=== PATIENT | male | born 1950 | race Caucasian/White ===

== ENCOUNTER → 2024-05-02 08:03 | Outpatient (REF) | payer OTHER, SELFPAY | LOC: HWRCS 08:03 | PROVIDERS: ATTENDING PHYSICIAN Internal Medicine; FAMILY PHYSICIAN Family Medicine | DX: I77.810 Thoracic aortic ectasia (principal) | CPT/HCPCS: 93306 ==

== ENCOUNTER → 2024-05-20 08:44 | Outpatient (REF) | payer OTHER, SELFPAY | LOC: HWRAD 08:44 | PROVIDERS: ATTENDING PHYSICIAN Surgery; FAMILY PHYSICIAN Family Medicine | DX: N40.0 Benign prostatic hyperplasia without lower urinary tract symptoms (principal) | CPT/HCPCS: 76770 ==

== ENCOUNTER 2024-11-23 10:24 | Emergency (ER) | payer OTHER, SELFPAY ==
[2024-11-23] VITALS (16 sets, daily range): BP systolic 95–133; BP diastolic 69–89; BMI 29.2
--- NOTE | 2024-11-23 10:32 | ED.GENMED ---
History of Present Illness
<KARLEY Chamberlain - Last Filed: 11/23/24 14:21>
General
Chief Complaint: Chest Pain
Source: patient
Exam Limitations: none
Time Seen by Provider: 11/23/24 10:32
Nursing documentation reviewed up to this point in time: agreed with
History of Present Illness
History of Present Illness:
74 yr old male with past medical history of hypertension renal failure renal transplant 4 years ago A-fib(last episode 2-3 years ago) presents to the ER for evaluation. Patient was making coffee prior to arrival and felt he went into A-fib. He did
take his normal Eliquis this morning. He also was prescribed metoprolol as needed for possible A-fib and he did take a dose today. He is followed by cardiology here Dr. Dc.
He had no associated chest pain/shortness of breath.
Patient has had episodes of A-fib in the past and has spontaneously converted on his own. In addition he has had cardioversions which have not worked.
Past History
<KARLEY Chamberlain - Last Filed: 11/23/24 14:21>
Past History
ED Past Medical History: HTN and Other (Chronic kidney disease)
Social History
Tobacco: Non-smoker
Alcohol: None
Review of Systems
<KARLEY Chamberlain - Last Filed: 11/23/24 14:21>
Review of Systems
Allergies reviewed?: Yes
All Other Systems: ROS reviewed and negative except as documented in HPI and ROS
Constitutional: Reports no symptoms; Denies fever, fatigue or chills
Phy Exam
<KARLEY Chamberlain - Last Filed: 11/23/24 14:21>
General Physical Exam
General Presentation: no apparent distress
General age: appears stated age
General Skin: warm and dry
General Habitus: normal
General Mental: alert
General Hydration: appears well hydrated
Cardiovascular Exam
Cardiovascular Exam: irregularly irregular
Pulmonary Exam
Pulmonary Exam: lungs clear and no respiratory distress
Neurological Exam
Neurological Exam: alert and oriented x3
Musculoskeletal Exam
Musculoskeletal Exam: full ROM
Skin Exam
Skin Exam: normal color and warm/dry
Psychiatric Exam
Psychiatric Exam: normal mood/affect
Scores
<KARLEY Chamberlain - Last Filed: 11/23/24 14:21>
Heart Score for Chest Pain Patients
STEMI patient?: Not applicable
Course
<KARLEY Chamberlain - Last Filed: 11/23/24 14:21>
Orders/Labs/Results
Orders:
Orders
11/23/24 10:24
ECG [Electrocardiogram (*1)] Urgent
Reason for Study: Chest Pain
11/23/24 10:25
EKG- Treatment ONCE
11/23/24 10:42
Cardiac Monitoring- Treatment ONCE
IV Insert/Care/Rem.- Treatment PRN
11/23/24 10:46
Diltiazem 125 mg/125 ml Nss [Cardizem] 125 mg in 125 ml IV NOW
Initial dose in mg/hr, then titrate:: 5
Titrate to keep:: Heart rate 80-100 bpm
Titrate by mg/hr:: 5 mg/hr
Frequency of titrations (minutes):: 15
Maximum dose in mg/hr:: 15
Diltiazem HCl [Cardizem] 10 mg IV NOW STA
11/23/24 10:59
Complete Blood Count/With Diff Urgent
Comprehensive Metabolic Panel Urgent
TSH Reflex To Free T4 Urgent
11/23/24 11:00
0.9% Sodium Chloride 1000 ml [Nss] 1,000 ml IV BOLUS
Abnormal Lab Results
11/23/24
10:59
MPV 11.5 H fL
(7.4-10.4)
Absolute Lymphs (auto) 0.7 L 10^3/uL
(1.2-3.4)
Neutrophils % 81.1 H %
(42.2-75.2)
Lymphocytes % 9.7 L %
(20.5-51.1)
Sodium 134 L mmol/L
(135-145)
Carbon Dioxide 18 L mmol/L
(22-30)
BUN 35 H mg/dl
(9-20)
Glucose 393 H mg/dl
(70-99)
11/23/24 10:59
11/23/24 10:59
Vital Signs
Initial and Last Documented VS:
Initial Vital Signs
Temp Pulse Resp BP Pulse Ox
98.5 F 70 18 119/85 98
11/23/24 10:27 11/23/24 10:27 11/23/24 10:27 11/23/24 10:27 11/23/24 10:27
Last Documented Vital Signs
Temp Pulse Resp BP Pulse Ox
98.5 F 81 18 116/69 98
11/23/24 10:27 11/23/24 12:13 11/23/24 12:13 11/23/24 12:13 11/23/24 12:13
Weatherization Installer consulted with Physician
Weatherization Installer consulted with physician?: Yes
Name of Physician Consulted: Zaida
<Eliezer Cerda, DO - Last Filed: 11/23/24 10:46>
Orders/Labs/Results
Orders:
Orders
11/23/24 10:24
ECG [Electrocardiogram (*1)] Urgent
Reason for Study: Chest Pain
11/23/24 10:25
EKG- Treatment ONCE
11/23/24 10:42
Cardiac Monitoring- Treatment ONCE
IV Insert/Care/Rem.- Treatment PRN
11/23/24 10:46
Diltiazem 125 mg/125 ml Nss [Cardizem] 125 mg in 125 ml IV NOW
Initial dose in mg/hr, then titrate:: 5
Titrate to keep:: Heart rate 80-100 bpm
Titrate by mg/hr:: 5 mg/hr
Frequency of titrations (minutes):: 15
Maximum dose in mg/hr:: 15
Diltiazem HCl [Cardizem] 10 mg IV NOW STA
11/23/24 10:59
Complete Blood Count/With Diff Urgent
Comprehensive Metabolic Panel Urgent
TSH Reflex To Free T4 Urgent
11/23/24 11:00
0.9% Sodium Chloride 1000 ml [Nss] 1,000 ml IV BOLUS
Abnormal Lab Results
11/23/24
10:59
MPV 11.5 H fL
(7.4-10.4)
Absolute Lymphs (auto) 0.7 L 10^3/uL
(1.2-3.4)
Neutrophils % 81.1 H %
(42.2-75.2)
Lymphocytes % 9.7 L %
(20.5-51.1)
Sodium 134 L mmol/L
(135-145)
Carbon Dioxide 18 L mmol/L
(22-30)
BUN 35 H mg/dl
(9-20)
Glucose 393 H mg/dl
(70-99)
11/23/24 10:59
11/23/24 10:59
Vital Signs
Initial and Last Documented VS:
Initial Vital Signs
Temp Pulse Resp BP Pulse Ox
98.5 F 70 18 119/85 98
11/23/24 10:27 11/23/24 10:27 11/23/24 10:27 11/23/24 10:27 11/23/24 10:27
Last Documented Vital Signs
Temp Pulse Resp BP Pulse Ox
98.5 F 81 18 116/69 98
11/23/24 10:27 11/23/24 12:13 11/23/24 12:13 11/23/24 12:13 11/23/24 12:13
<KARLEY Chamberlain - Last Filed: 11/23/24 14:21>
MDM/Problems Addressed
Differential Diagnosis Includes:
Not limited to A-fib
MDM/Problems Addressed:
74-year-old male with past medical history of paroxysmal A-fib last episode 2-3 years ago on chronic Eliquis presents to the ER for A-fib. He felt symptoms abated and presented tachycardic in A-fib however stable no acute distress. Patient has had
several cardioversions in the past which were unsuccessful. Patient was given fluids Cardizem bolus and Cardizem drip he remains in A-fib however was feeling better asymptomatic and his heart rate was controlled under 100. Patient has a
prescription for metoprolol tartrate 25 mg to take only as needed when symptoms occur. He did try this today.
Pt was eval by ED physician. I spoke with cardiology on-call Dr. Gill who does recommend that patient take metoprolol tartrate 25 mg twice daily will continue on Eliquis and he will follow-up with cardiology next week. I will send a prescription
for this metoprolol dose.
Pt labs reviewed, Blood sugar elevated given fluids here patient is not acidotic normal creatinine afebrile with a normal white count stable hemoglobin and platelets.
Patient was monitored here on was Cardizem remains in a controlled A-fib asymptomatic well-appearing stable for discharge home.
<KARLEY Chamberlain - Last Filed: 11/23/24 14:21>
*Pulse Oximetry
Patient hypoxic: no
*EKG
Interpreted by ED Provider?: Yes
Heart Rate: 130
Rate: tachycardiac
Rhythm: a-fib
Ischemia: no ischemia
*Critical Care Note
Total Time (30-74mins, 75-104mins- exclusive of procedures): Not Applicable
<KARLEY Chamberlain - Last Filed: 11/23/24 14:21>
Patient Management
Discussion with other providers: Metal Casket Assembler (cardiology DR Gill )
ED Attending Note
<KARLEY Chamberlain - Last Filed: 11/23/24 14:21>
-
Portions of this chart may have been created with voice recognition software.� Occasional wrong word or��sound alike� substitutions may have occurred due to the inherent limitations of voice recognition software.
<Eliezer Cerda DO - Last Filed: 11/23/24 10:46>
ED Attending Note
Patient seen and examined by attending physician: Yes
I performed the substantive portion of visit, reviewed & personally made and approve the management plan that is documented in note by myself or DAQUAN.: Yes
ED Attending Note:
I evaluated the patient at bedside. The patient is found to be in rapid A-fib. He states he had a failed electrical cardioversion around the time he had his kidney transplant. He is compliant with Eliquis and has not missed any doses in the last
several weeks. He states he has converted spontaneously to a sinus rhythm in the emergency department at [place] twice in the past. Will try Cardizem here and reassess.
Discharge Plan
Departure
Patient Disposition: Home (Routine Discharge)
Date of Disposition: 11/23/24
Time of Disposition: 14:13
Patient with high blood pressure during this ER visit?: No
Condition: Fair
Covid-19: Not Applicable
Discharge Problem:
Atrial fibrillation, rapid
Instructions: Atrial fibrillation - Discharge instructions
Prescriptions:
New
metoprolol tartrate 25 mg tablet
25 mg PO BID Qty: 60 0RF
No Action
cyanocobalamin (vitamin B-12) 1,000 MCG tablet
1,000 mcg PO DAILY
loratadine 10 MG tablet
10 mg PO DAILY
metoprolol tartrate 25 MG tablet
25 mg PO PRN PRN (Reason: palpitations)
fluoxetine 20 MG capsule
20 mg PO DAILY
mycophenolate mofetil [CellCept] 250 mg Capsule
500 mg PO BID
amlodipine 2.5 mg Tablet
2.5 mg PO DAILY
pravastatin 20 mg Tablet
20 mg PO HS
lisinopril 2.5 mg Tablet
2.5 mg PO DAILY
tacrolimus [Prograf] 1 mg Capsule
2 mg PO DAILY
tacrolimus [Prograf] 1 mg Capsule
1.5 mg PO .EVENING
repaglinide [Prandin] 1 mg Tablet
2 mg PO BID
Rx Instructions:
breakfast and lunch
repaglinide [Prandin] 1 mg Tablet
3 mg PO .DINNER
Eliquis 5 mg Tablet
5 mg PO BID
dapagliflozin propanediol [Farxiga] 10 mg Tablet
10 mg PO DAILY
Ozempic 0.25 mg or 0.5 mg(2 mg/1.5 mL) Pen Injector
0.5 mg SC QWEEK
Rx Instructions:
monday
magnesium oxide 400 mg magnesium Tablet
800 mg PO BID
Referrals:
Nikhil Gill MD [Active] -
Devin Disla MD [Family Provider] -
Activity Restrictions/Additional Instructions:
As discussed a prescription for metoprolol tartrate 25 mg was sent to your pharmacy :take twice a day.
Avoid caffeine, chocolate etc. Stay well-hydrated. Call cardiology Monday for an appointment in the next week .
return if any worsening of symptoms
Interventions
Interventions:
*Risk Screen - Suicide Last Done: 11/23/24 10:27
*General Assessment Last Done: 11/23/24 10:27
*Neglect/Abuse Screening Last Done: 11/23/24 10:27
*ED- Fall Risk Assessment Last Done: 11/23/24 10:27
*ED COVID-19 Vaccine History Last Done: 11/23/24 10:27
ED- Cardiac Assessment Last Done: 11/23/24 10:37
Discharge Date and Time
Print Language: PASHTO
[2024-11-23 11:07] LABS: % Basophils 0.6 % (0-2); % Eosinophils 1.7 % (0-6); % Immature Granulocytes 0.3 % (0-0.5); % Lymphocytes 9.7 % (20.5-51.1); % Monocytes 6.6 % (1.7-9.3); % Neutrophils 81.1 % (42.2-75.2); Absolute Eosinophils 0.1 10^3/uL (0-0.7); Absolute Lymphocytes 0.7 10^3/uL (1.2-3.4); Absolute Monocytes 0.5 10^3/uL (0.1-0.6); Absolute Neutrophils 5.8 10^3/uL (1.4-6.5); Hematocrit 48.5 % (39.0-52.0); Hemoglobin 16.7 g/dL (13.0-18.0); Mean Corp Hgb Conc. 34.4 g/dL (33.0-37.0); Mean Corpuscular Hgb 30.8 pg (27.0-31.0); Mean Corpuscular Volume 89.3 fL (80.0-94.0); Mean Platelet Volume 11.5 fL (7.4-10.4); Nucleated Red Blood Cells % 0 % (-); Platelet Count 179 10^3/uL (130-400); Red Blood Cell Count 5.43 10^6/uL (4.70-6.10); Red Cell Dist. Width 13.2 % (11.5-14.5); White Blood Cell Count 7.1 10^3/uL (4.8-10.8)
[2024-11-23] MEDS: CARDIZEM 10 MG IV (11:08)
[2024-11-23] MEDS: CARDIZEM 125 IV (11:09)
[2024-11-23] MEDS: NSS 1000 IV (11:09)
--- NOTE | 2024-11-23 11:11 | EDRN ---
Patient stated that he developed palpitations about 1000 this morning. Stated that he was having chest pain and dizziness when it started but have gone away. Patent stated that he is beginning to feel better and does not feel like his heart is
racing as much as it was. Patient medicated with Cardizem 10mg IV and then drip started at 5mg/HR.
[2024-11-23 11:21] LABS: ALT (SGPT) 30 U/L (0-50); AST (SGOT) 20 U/L (17-59); Albumin 3.8 g/dl (3.5-5.0); Alkaline Phosphatase 63 U/L (38-126); Blood Urea Nitrogen 35 mg/dl (9-20); Calcium 9.6 mg/dl (8.4-10.2); Carbon Dioxide 18 mmol/L (22-30); Chloride 106 mmol/L (98-107); Estimated Creatinine Clearance 54 ml/min; Glucose 393 mg/dl (70-99); Potassium 4.7 mmol/L (3.5-5.1); Sodium 134 mmol/L (135-145); Total Bilirubin 0.9 mg/dl (0.2-1.3); Total Protein 6.3 g/dl (6.3-8.2); eGFR > 60.00
[2024-11-23 11:53] LABS: TSH Reflex To Free T4 4.53 uIU/ml (0.47-4.68)
--- NOTE | 2024-11-23 14:26 | EDRN ---
Reviewed discharge instructions with patient. Verbalized understanding.
== END 2024-11-23 14:28 | disposition home or self-care (01) ==
LOC: EMR 10:24
PROVIDERS: Nurse Practitioner; EMERGENCY PHYSICIAN Emergency Medicine; FAMILY PHYSICIAN Family Medicine
DX: I48.0 Paroxysmal atrial fibrillation (principal); I12.9 Hypertensive chronic kidney disease with stage 1 through stage 4 chronic kidney disease, or unspecified chronic kidney disease; E11.22 Type 2 diabetes mellitus with diabetic chronic kidney disease; N18.9 Chronic kidney disease, unspecified; E78.5 Hyperlipidemia, unspecified; F41.9 Anxiety disorder, unspecified; Z94.0 Kidney transplant status; Z79.01 Long term (current) use of anticoagulants; Z79.84 Long term (current) use of oral hypoglycemic drugs; Z88.2 Allergy status to sulfonamides; Z88.8 Allergy status to other drugs, medicaments and biological substances; Z91.041 Radiographic dye allergy status
CPT/HCPCS: 99284; 96365; 96366; 96361; 80053; 84443; 85025; 93005

== ENCOUNTER → 2024-12-20 13:41 | Outpatient (REF) | payer OTHER, SELFPAY | LOC: HWRCS 13:41 | PROVIDERS: ATTENDING PHYSICIAN Nurse Practitioner Gerontology; FAMILY PHYSICIAN Family Medicine | DX: R07.9 Chest pain, unspecified (principal) | CPT/HCPCS: 93306 ==

== ENCOUNTER 2025-02-11 11:45 | Day surgery (SDC) | payer OTHER, SELFPAY ==
[2025-02-07 12:43] VITALS: BMI 28.9
[2025-02-07 13:05] LABS: % Basophils 0.6 % (0-2); % Eosinophils 1.6 % (0-6); % Immature Granulocytes 0.2 % (0-0.5); % Lymphocytes 11.7 % (20.5-51.1); % Monocytes 8.5 % (1.7-9.3); % Neutrophils 77.4 % (42.2-75.2); Absolute Basophils 0.1 10^3/uL (0-0.2); Absolute Eosinophils 0.1 10^3/uL (0-0.7); Absolute Lymphocytes 0.9 10^3/uL (1.2-3.4); Absolute Monocytes 0.7 10^3/uL (0.1-0.6); Absolute Neutrophils 6.2 10^3/uL (1.4-6.5); Hemoglobin 16.1 g/dL (13.0-18.0); Mean Corpuscular Hgb 31.3 pg (27.0-31.0); Mean Corpuscular Volume 89.5 fL (80.0-94.0); Nucleated Red Blood Cells % 0 % (-); Platelet Count 203 10^3/uL (130-400); Red Blood Cell Count 5.14 10^6/uL (4.70-6.10); Red Cell Dist. Width 13.1 % (11.5-14.5)
[2025-02-07 13:55] LABS: ALT (SGPT) 31 U/L (0-50); AST (SGOT) 22 U/L (17-59); Albumin 4.1 g/dl (3.5-5.0); Alkaline Phosphatase 50 U/L (38-126); Blood Urea Nitrogen 33 mg/dl (9-20); Calcium 9.8 mg/dl (8.4-10.2); Carbon Dioxide 19 mmol/L (22-30); Chloride 111 mmol/L (98-107); Estimated Creatinine Clearance 48 ml/min; Glucose 180 mg/dl (70-99); Potassium 5.1 mmol/L (3.5-5.1); Sodium 137 mmol/L (135-145); Total Bilirubin 0.8 mg/dl (0.2-1.3); Total Protein 6.4 g/dl (6.3-8.2); eGFR > 60.00
[2025-02-11] VITALS (13 sets, daily range): BP systolic 89–125; BP diastolic 55–78
[2025-02-11 12:44] LABS: Glucose - Point of Care 177 mg/dl (70-99)
[2025-02-11] MEDS: NSS 500 IV (13:04)
[2025-02-11 15:57] LABS: Glucose - Point of Care 103 mg/dl (70-99)
[2025-02-11 16:31] LABS: ACT-LR - POC 382 Seconds (116-155)
[2025-02-11 16:56] LABS: ACT-LR - POC 337 Seconds (116-155)
[2025-02-11 17:04] LABS: Glucose - Point of Care 120 mg/dl (70-99)
--- NOTE | 2025-02-11 17:14 | ITS.CL.ABL ---
Loan Analyst - Ablation
Ablation
Procedure Report:
AFIB / A flutter ablation:
Mr. Cox is a very pleasant 74 yr old gentleman with medical history significant for symptomatic paroxysmal atrial fibrillation is here in the EP lab for atrial fibrillation ablation
Date of Procedure:
02/11/2025
Indications:
Symptomatic paroxysmal atrial fibrillation
Pre-Operative Diagnosis:
Paroxysmal atrial fibrillation
Post-Operative Diagnosis:
Paroxysmal atrial fibrillation
Procedure Performed:
Atrial fibrillation ablation with wide area circumferential ablation (WACA) approach for pulmonary vein isolation
Performing Physician:
Deepak Sanchez MD
Assistants:
EP staff
Anesthesia:
See anesthesia records
Detailed Description of the Procedure:
Written informed consent was obtained from the patient after a full explanation of the risks and benefits of the procedure including the risks of sedation and anesthesia.
The patient was brought to the electrophysiology laboratory in stable condition in fasting state. Continuous electrocardiographic and hemodynamic monitoring was initiated.
The initial rhythm was sinus rhythm.
The procedure site was meticulously prepared with surgical scrub and allowed to dry with no pooling. Sterile draping was applied to cover the procedure site. The image intensifier was draped with sterile bag and positioned over the patient. After
infusion of local anesthetic, vascular access was obtained under ultrasound guidance and sheaths were placed over guide wire as detailed below.
The images of the ultrasound of the femoral vessels were stored in patient chart.
Sheath and Catheter Placement:
In the right femoral vein, a 10-Serbian sheath was placed under ultrasound guidance for use during the ablation procedure. In the right femoral vein, another 9-Fr sheath was placed for use during intracardiac echo procedure.
The sheaths were upgraded as needed during the case. Intracardiac catheters were positioned using direct fluoroscopic guidance.� ICE catheter was placed in RA. The following catheters / sheaths were placed
Sheaths:
��������� Agilis sheath in right femoral vein upgraded from 10Fr in right femoral vein
��������� 9Fr in right femoral vein
Catheters:
��������� The Affera Sphere 9 catheter -bidirectional D/F� - at locations of HRA, LA and LV.
��������� ICE catheter -AccuNav -� at locations of RA, SVC, and RV.
Heparin was initiated after the access was obtained.
Intracardiac ECHO:
An 8-Serbian AcuNav intracardiac ECHO (ICE) probe was advanced through the 9-Serbian sheath in the left femoral vein into the right atrium under fluoroscopic and ICE ultrasound image guidance and a baseline ECHO study was performed. The left atrial
size was mildly dilated. There was trace tricuspid regurgitation. The aortic valve was grossly normal. There was normal left ventricular size and function. There is a trace pericardial effusion. The SHIKHA has baseline normal velocities. The pulmonary
had good flow identified.
During the procedure, ICE was used for monitoring of complications, guidance of trans-septal puncture, monitor the catheter position and tracking ablation lesions. No change in the pericardial space noted throughout the procedure.
Trans-septal Puncture:
Heparin was initiated and infused to maintain appropriate ACT. A J-tipped guidewire was advanced through into the superior vena cava under fluoroscopic and ICE guidance. The Agilis sheath with BRK needle was advanced into the superior vena cava over
the guidewire. The apparatus was withdrawn until it was in contact with the fossa ovalis. The position was adjusted based on fluoroscopy and ultrasound images from ICE. Under fluoroscopic, hemodynamic and ICE ultrasound guidance, left atrium was
cannulated by advancing the needle. Once atrial septum was cannulated, the needle was pulled back and the guide wire was advanced through the needle into the left atrium. The guide wire was advanced into the left superior pulmonary vein. Both the
sheath and the dilator was advanced into the left atrium. The dilator with the needle was withdrawn. Blood was aspirated from the Agilis sheath and arterial blood confirmed. The sheath was flushed. Saline injection noted into the left atrium on ICE.
The waveform of the LA pressure was recorded. The mapping catheter was advanced in the Agilis sheath into the left pulmonary vein.
3D Electroanatomic Mapping:
Using the Sphere 9 Affera catheter advanced through Agilis sheath into the left atrium, an electroanatomic map (EAM) of the left atrium was created using Affera� mapping system with Prism-1 software. The map was used for localization of catheter
position and tacking of ablation lesions. The EAM of the left atrium showed a total of 4 PVs with a two left and two right sided pulmonary veins with all electrically connected to the body the LA. It showed no significant scar on the posterior wall
of the LA. The LA was dilated in size.
Following the EAM, preparation were made for ablation.
Ablation:
Ablation # 2: Pulmonary vein Isolation:
Glycopyrrolate 0.2 mg was given prior to the placement of ablation.
Pulsed field ablation was performed using an open irrigation, bidirectional, contact sensing, dual energy ablation catheter ([employer] sphere -9) by completing the circumferential lesions around the left and right pulmonary veins achieving pulmonary
vein isolation.
Confirmation of the PVI and bidirectional block:
Following achievement of entrance block at the pulmonary veins, pacing from the Sphere 9 affera catheter in each of the four veins at 20 milliamps for 4 milliseconds showed entrance and exit block.
The LA was mapped with The [employer]� mapping system with Prism-1 software in sinus rhythm confirming the line of block at the ablation lesions lines.
�
EP study:
Sinus Node Function: The sinus node functions are within acceptable normal range.
Atrioventricular Deondre Function: �Normal AV conduction noted with normal AV deondre conduction time.
Procedure End
ICE study was done again that showed no epicardial accumulation. No complications noted.
Following the completion of the EP study, catheters were removed. Protamine 30 mg was given at the end of the procedure and ACT was checked repeatedly. The sheaths were removed and hemostasis achieved with VASCADE and manual compression after
acceptable ACT is achieved.
Left atrial Pressure:
Pre-Procedure: Mean LA pressure was 13mmHg
Post-Procedure: Mean LA pressure was 13mmHg
Estimated Blood loss:
<10 cc
Specimens Removed:
None.
Implants / Devices:
None
Urine output:
None
Packs / Drains/ Tubes:
None
Instrument / Sponge Count Correct:
Yes
Complications of the Procedure:
None
Condition of Patient at Time of Transfer:
Hemodynamically stable with no neurological or vascular compromise.
Summary:
��������� Successful atrial fibrillation ablation with circumferential bidirectional line of block at pulmonary vein antra (Pulmonary vein isolation)
Figures from the Procedure:
Figure 1: The electroanatomic mapping (EAM) of the left atrium with bipolar voltage (purple indicates normal electrical activity with red as no myocardial muscle electric activity indicating a line of block or scar.
[2025-02-11] MEDS: TYLENOL 650 MG PO (17:54)
== END 2025-02-11 20:16 | disposition home or self-care (01) ==
LOC: CATH 11:45
PROVIDERS: ATTENDING PHYSICIAN Internal Medicine Cardiovascular Disease; FAMILY PHYSICIAN Family Medicine; OTHER PHYSICIAN Internal Medicine
DX: I48.0 Paroxysmal atrial fibrillation (principal); Z94.0 Kidney transplant status; E11.9 Type 2 diabetes mellitus without complications; E78.5 Hyperlipidemia, unspecified; I10 Essential (primary) hypertension; I49.1 Atrial premature depolarization; Z79.01 Long term (current) use of anticoagulants; Z79.621 Long term (current) use of calcineurin inhibitor; Z79.84 Long term (current) use of oral hypoglycemic drugs; Z79.85 Long-term (current) use of injectable non-insulin antidiabetic drugs; Z79.899 Other long term (current) drug therapy; Z88.2 Allergy status to sulfonamides; Z91.041 Radiographic dye allergy status
CPT/HCPCS: C1769; C1894; C1730; C1733; C1766; C1759; C1892; 36415; 80053; 82962; 85025; 85347; 86850; 86900; 86901; 93005; 93656; C1760

== ENCOUNTER 2025-04-26 01:25 | Inpatient (IN) | payer OTHER, SELFPAY ==
[2025-04-25 15:45] VITALS: BP 107/73
[2025-04-25 16:21] LABS: Hematocrit 45.2 % (39.0-52.0); Hemoglobin 15.4 g/dL (13.0-18.0); Mean Corp Hgb Conc. 34.1 g/dL (33.0-37.0); Mean Corpuscular Volume 90.9 fL (80.0-94.0); Nucleated Red Blood Cells % 0 % (-); Platelet Count 245 10^3/uL (130-400); Red Cell Dist. Width 12.8 % (11.5-14.5)
[2025-04-25 16:45] LABS: ALT (SGPT) 24 U/L (0-50); AST (SGOT) 20 U/L (17-59); Albumin 4.0 g/dl (3.5-5.0); Alkaline Phosphatase 51 U/L (38-126); Blood Urea Nitrogen 34 mg/dl (9-20); Calcium 9.6 mg/dl (8.4-10.2); Carbon Dioxide 22 mmol/L (22-30); Chloride 105 mmol/L (98-107); Glucose 132 mg/dl (70-99); Lipase 167 U/L (23-300); Potassium 5.6 mmol/L (3.5-5.1); Sodium 137 mmol/L (135-145); Total Protein 6.6 g/dl (6.3-8.2); eGFR 52.41
--- NOTE | 2025-04-25 19:42 | ED.GENMED ---
History of Present Illness
General
Chief Complaint: Abdominal Pain
Source: patient
Exam Limitations: none
Time Seen by Provider: 04/25/25 18:58
Nursing documentation reviewed up to this point in time: agreed with
History of Present Illness
History of Present Illness:
74 yr old male with PMH of afib, htn , hyperlipidemia end-stage renal disease with kidney transplant, diabetes presents to the ER for evaluation. 6 days ago patient started with abdominal pain and vomiting. He vomited for 2 days and had
discomfort with eating. Patient has not vomited since Monday however has had abdominal discomfort and bloating. He complains of pain throughout his abdomen including his lower abdomen and feels pain in his back. He did see his family doctor today
who recommended CAT scan. Patient denies any present nausea. He did move his bowels today denies diarrhea. He denies any fever chills denies any urinary frequency urgency or dysuria..
He did have a recent colonoscopy which showed diverticulosis.
Past History
Past History
ED Past Medical History: HTN and Other (Chronic kidney disease)
Social History
Tobacco: Non-smoker
Alcohol: None
Phy Exam
General Physical Exam
General Presentation: no apparent distress
General age: appears stated age
General Skin: warm and dry
General Habitus: normal
General Mental: alert
General Hydration: appears well hydrated
Gastrointestinal Exam
Gastrointestinal Exam: non tender and soft
Neurological Exam
Neurological Exam: alert and oriented x3
Musculoskeletal Exam
Musculoskeletal Exam: full ROM
Skin Exam
Skin Exam: normal color and warm/dry
Psychiatric Exam
Psychiatric Exam: normal mood/affect
Course
Orders/Labs/Results
Orders:
Orders
04/25/25 15:56
Complete Blood Count/With Diff Urgent
Comprehensive Metabolic Panel Urgent
Lipase Urgent
04/25/25 19:55
CT Abd/pel (oral only)-DH Only Urgent
Comment:
Reason For Exam: abd pain/bloating
Iohexol [Omnipaque] See Protocol PO NOW STA
04/25/25 19:56
IV Insert/Care/Rem.- Treatment PRN
0.9% Sodium Chloride 1000 ml [Nss] 1,000 ml IV BOLUS
04/25/25 22:10
UA Reflex to Culture [Urinalysis Reflex To Culture] Urgent
Date Specimen was Collected: 04/25/25
Time Specimen was Collected: 21:48
Urine Microscopic Reflex Cult Urgent
04/25/25 23:36
Piperacillin/Tazo 3.375 Gram [Zosyn] 3.375 gram in 50 ml IV NOW
04/25/25 23:40
Sodium Zirconium Cyclosilicate [Lokelma] 10 gram PO NOW STA
04/25/25 23:41
Electrocardiogram (*1) Stat
Reason for Study: Other
Other Reason for Exam: chest pain
EKG- Treatment ONCE
Abnormal Lab Results
04/25/25 04/25/25
15:56 22:10
MPV 10.5 H fL
(7.4-10.4)
Absolute Neuts (auto) 8.0 H 10^3/uL
(1.4-6.5)
Absolute Lymphs (auto) 0.9 L 10^3/uL
(1.2-3.4)
Absolute Monos (auto) 1.0 H 10^3/uL
(0.1-0.6)
Neutrophils % 78.2 H %
(42.2-75.2)
Lymphocytes % 9.1 L %
(20.5-51.1)
Monocytes % 10.1 H %
(1.7-9.3)
Potassium 5.6 H mmol/L
(3.5-5.1)
BUN 34 H mg/dl
(9-20)
Creatinine 1.4 H mg/dL
(0.7-1.3)
Glucose 132 H mg/dl
(70-99)
Ur Occult Blood Reflex 1+ A
(Negative)
Urine Bacteria (Reflex) Few A
(Negative)
Urine Glucose 4+ A
(Negative)
04/25/25 15:56
04/25/25 15:56
Vital Signs
Initial and Last Documented VS:
Initial Vital Signs
Temp Pulse Resp BP Pulse Ox
98.8 F 71 20 107/73 96
04/25/25 15:45 04/25/25 15:45 04/25/25 15:45 04/25/25 15:45 04/25/25 15:45
Last Documented Vital Signs
Temp Pulse Resp BP Pulse Ox
98.8 F 65 18 107/73 97
04/25/25 15:45 04/25/25 22:23 04/25/25 22:23 04/25/25 15:45 04/25/25 22:23
MDM/Problems Addressed
MDM/Problems Addressed:
Patient is a 74-year-old male with renal transplant, A-fib on Eliquis presents with lower abdominal pain for the past several days. He did have 2 episodes of vomiting on the initial 2 days however that has since resolved. He has tenderness at the
lower abdomen. He denies any fever or chills and he arrives afebrile with a normal white count. creatinine is 1.4 (pt reports normally his creatinine is 1.3) his potassium however is 5.6 . will check EKG however as d/c w ED physician will give a
dose of Lokelma.
CAT scan shows acute diverticulitis of the proximal sigmoid colon with gas and fluid containing focus extending superiorly consistent with focal perforation developing pericolonic abscess. He is nontoxic-appearing he was given fluids. Case
reviewed with surgery Dr. Pinto IV antibiotics ordered will admit to the hospital service
*Radiology
Radiology exam reviewed: radiology read reviewed
*Pulse Oximetry
SaO2: 96
Oxygen Mode of Delivery: Room air
Patient hypoxic: no
*EKG
Interpreted by ED Provider?: Yes
Heart Rate: 69
Rate: normal
Rhythm: sinus
Ischemia: no ischemia
*Critical Care Note
Total Time (30-74mins, 75-104mins- exclusive of procedures): Not Applicable
ED Attending Note
-
Portions of this chart may have been created with voice recognition software.� Occasional wrong word or��sound alike� substitutions may have occurred due to the inherent limitations of voice recognition software.
Discharge Plan
Departure
Patient Disposition: Admit
Date of Disposition: 04/25/25
Time of Disposition: 23:44
Admit to: Med/Surg
Admit to doctor: hospitalist
Presentation/result/management discussed w/ accepting MD/DO: Hospitalist
Patient with high blood pressure during this ER visit?: No
Condition: Fair
Covid-19: Not Applicable
Discharge Problem:
acute diverticulitis with perforation
Prescriptions:
No Action
cyanocobalamin (vitamin B-12) 1,000 MCG tablet
1,000 mcg PO DAILY
loratadine 10 MG tablet
10 mg PO DAILY
fluoxetine 20 MG capsule
20 mg PO DAILY
mycophenolate mofetil [CellCept] 250 mg Capsule
500 mg PO BID
pravastatin 20 mg Tablet
20 mg PO HS
lisinopril 2.5 mg Tablet
2.5 mg PO DAILY
tacrolimus [Prograf] 1 mg Capsule
2 mg PO DAILY
tacrolimus [Prograf] 1 mg Capsule
1.5 mg PO .EVENING
repaglinide 1 mg Tablet
3 mg PO .DINNER
Eliquis 5 mg Tablet
5 mg PO BID
dapagliflozin propanediol [Farxiga] 10 mg Tablet
10 mg PO DAILY
magnesium oxide 400 mg magnesium Tablet
800 mg PO BID
amlodipine 10 mg Tablet
2.5 mg PO DAILY
repaglinide 1 mg Tablet
1 mg PO BID
Rx Instructions:
Takes at breakfast and lunch
Ozempic 1 mg/dose (4 mg/3 mL) Pen Injector
1 mg SC QWEEK
Rx Instructions:
Takes on Monday
metoprolol tartrate 25 mg tablet
12.5 mg PO BID
Referrals:
Devin Disla MD [Family Provider, Family Practice]
Interventions
Interventions:
*Risk Screen - Suicide Last Done: 04/25/25 15:45
*General Assessment Last Done: 04/25/25 15:45
*Neglect/Abuse Screening Last Done: 04/25/25 15:45
*ED- Fall Risk Assessment Last Done: 04/25/25 21:49
*ED COVID-19 Vaccine History Last Done: 04/25/25 21:49
XN-Kjupwq-Noxcycwpms Assessment Last Done: 04/25/25 21:49
Discharge Date and Time
Print Language: CZECH
[2025-04-25 20:30] VITALS: BMI 28.9
[2025-04-25] MEDS: OMNIPAQUE 50 ML PO (20:35)
[2025-04-25] MEDS: NSS 1000 IV (20:36)
[2025-04-25 22:22] LABS: Urine Character Clear (Clear)
[2025-04-25 22:37] LABS: Urine Red Blood Cell 0-2 /HPF (0-2); Urine Squamous Cell 0-2 /LPF (Few); Urine Urothelial Cell 0-2 /LPF (FEW); Urine White Cell 0-2 /HPF (0-5)
[2025-04-25 22:40] VITALS: BP 154/93
[2025-04-26] VITALS: BP 128/80
[2025-04-26] MEDS: LOKELMA 10 GRAM PO (00:21)
[2025-04-26] MEDS: MORPHINE SULFATE 4 MG IV (00:21)
[2025-04-26] MEDS: ZOSYN 50 IV ×4 (00:22→16:53)
[2025-04-26] MEDS: ZOFRAN 4 MG IV ×2 (00:35→22:15)
--- NOTE | 2025-04-26 01:17 | HPS.HSE ---
Family Physician
-
Family Physician: Devin Disla
Chief Complaint
-
Abd Pain
History of Present Illness
Patient is a 74y M with PMH significant for hypertension, DM-II and renal transplant status who presents to ED complaining of abdominal pain / bloating. Patient states that he woke early in the AM on Monday with severe abdominal pain and N/V.
These symptoms lasted for several hours before slowly beginning to resolve. He has had persistent crampy lower abdominal pain and sense of bloating off-an-on for the past week. He denies any fevers / chills. Patient was seen by his PCP today and
advised to present to the ED for further evaluation.
Patient denies any prior episodes of diverticulitis. He had a colonoscopy one month ago that did show diverticular disease.
He does admit to intermittent constipation - but usually only lasting a day or so and alleviated with MOM, etc.
Medical History
Past Medical History
Past Medical History: Reports Other
Additional Past Medical History:
CKD / Renal Transplant
Hypertension
DM-II
Paroxysmal Atrial Fibrillation
Past Surgical History: Reports Other
Additional Past Surgical History:
PAF Ablation
Left Adrenalectomy
Achilles Repair
Renal Transplant (2020 - )
Social History
Tobacco: Non-smoker
Alcohol: None
Drug: None
Personal:
Family History
Family History: Not pertinent
Allergies / Home Medications
Allergies reflects when Allergies were last updated in [employer].
Home Medications with original date entered in [employer]
Allergy/Medication List:
Allergies
Allergy/AdvReac Type Severity Reaction Status Date / Time
Iodinated Contrast Media Allergy Hives Verified 04/25/25 15:48
niacin Allergy Itching Verified 04/25/25 15:48
Sulfa (Sulfonamide Allergy Hives, Verified 04/25/25 15:48
Antibiotics) Itching
Home Medications
cyanocobalamin (vitamin B-12) 1,000 mcg tablet 1,000 mcg PO DAILY Supplement 11/20/20
loratadine 10 mg tablet 10 mg PO DAILY Allergies 11/20/20
fluoxetine 20 mg capsule 20 mg PO DAILY Depression 11/21/20
apixaban 5 mg tablet (Eliquis) 5 mg PO BID 11/23/24
dapagliflozin propanediol 10 mg tablet (Farxiga) 10 mg PO DAILY 11/23/24
lisinopril 2.5 mg tablet 2.5 mg PO DAILY 11/23/24
magnesium oxide 800 mg PO BID 11/23/24
mycophenolate mofetil 250 mg capsule (CellCept) 500 mg PO BID 11/23/24
pravastatin 20 mg tablet 20 mg PO HS 11/23/24
repaglinide 1 mg tablet 3 mg PO .DINNER 11/23/24
tacrolimus 1 mg capsule, immediate-release (Prograf) 1.5 mg PO .EVENING 11/23/24
tacrolimus 1 mg capsule, immediate-release (Prograf) 2 mg PO DAILY 11/23/24
repaglinide 1 mg tablet 1 mg PO BID@0700,1200 02/03/25
semaglutide 1 mg/dose (4 mg/3 mL) subcutaneous pen injector (Ozempic) 1 mg SC MO 02/03/25
amlodipine 2.5 mg tablet 2.5 mg PO DAILY 04/26/25
Review of Systems
-
History Source: Patient
A 12 point ROS was completed and negative except as noted: Yes
Constitutional: Reports Fatigue; Denies Fever or Chills
Respiratory: Denies Cough or Trouble Breathing
Cardiac: Denies Chest Pain or Palpitations
Abdomen/GI: Reports Abdominal Pain, Nausea, Vomiting and Constipated; Denies Diarrhea, Bloody Stools or Black Stools
: Denies Dysuria, Frequency or Flank Pain
Musculoskeletal: Denies Joint Pain or Edema
Neurological: Denies Dizzy or Headache
Physical Exam
Vital Signs
Vital Signs
Temp Pulse Resp BP Pulse Ox
98.8 F 65 18 107/73 97
04/25/25 15:45 04/25/25 22:23 04/25/25 22:23 04/25/25 15:45 04/25/25 22:23
Physical Exam
General: Other (74y M in no acute distress.)
HEENT: Moist mucous membranes and PERRLA
Respiratory: Clear; No Wheezes, Rales or Rhonchi
Cardiac: S1/S2, Regular Rhythm and Murmur (II/ CANDICE)
GI: Soft, Non Distended, Normal Bowel Sounds and Other (Mild LLQ / suprapubic tenderness.)
Musculoskeletal: No Clubbing, No Cyanosis and No Edema
Neuro: AO x 3
Laboratory Results
-
04/25/25 15:56
04/25/25 15:56
Laboratory Results
Total Bilirubin 0.6 mg/dl (0.2-1.3) 04/25/25 15:56
AST 20 U/L (17-59) 04/25/25 15:56
ALT 24 U/L (0-50) 04/25/25 15:56
Alkaline Phosphatase 51 U/L (38-126) 04/25/25 15:56
Lipase 167 U/L (23-300) 04/25/25 15:56
Impression/Plan
-
A/P: Patient is a 74y M with PMH significant for HTN, DM-II and renal transplant who presents to ED complaining of abdominal pain for about one week.
Acute Sigmoid Diverticulitis with Abscess
- Admit for further evaluation and treatment.
- IV abx with Zosyn, IVF support, pain control, etc.
- Follow for clinical improvement.
- Colorectal Surgery evaluation for additional recommendations.
Renal Transplant Status
CKD III
- Stable. Renal function is near known baseline.
- Hold CellCept acutely. Continue usual tacrolimus without changes.
- IVFs as noted above.
- Follow renal function for any changes.
Mild Hyperkalemia
- Received a dose of Lokelma in the ED.
- IVFs as noted above. Hold lisinopril acutely.
- Follow for changes in labs / lytes.
Benign Hypertension
- BP is stable at present.
- Hold amlodipine / lisinopril acutely.
DM-II
- Stable. Hold PO med regimen for now.
- Follow glucose and cover with SSI as needed.
- Update A1C.
Paroxysmal Atrial Fibrillation
- s/p ablation in February with no noted A-Fib since per patient.
- Remains on Eliquis and took his last dose Monday AM.
- Hold Eliquis for now.
DVT Prophylaxis: SCDs
Code Status: Full
[2025-04-26] MEDS: PROGRAF 1.5 MG PO ×2 (02:13→16:53)
[2025-04-26 03:27] VITALS: BP 134/83; BMI 28.0
[2025-04-26 03:48] LABS: Glucose - Point of Care 111 mg/dl (70-99)
[2025-04-26] MEDS: NSS 1000 IV (03:58)
[2025-04-26 07:05] VITALS: BP 133/79
[2025-04-26 08:13] LABS: Glucose - Point of Care 84 mg/dl (70-99)
[2025-04-26 08:16] LABS: Hematocrit 41.6 % (39.0-52.0); Hemoglobin 14.1 g/dL (13.0-18.0); Mean Corp Hgb Conc. 33.9 g/dL (33.0-37.0); Mean Corpuscular Volume 91.4 fL (80.0-94.0); Platelet Count 204 10^3/uL (130-400); Red Cell Dist. Width 12.7 % (11.5-14.5)
[2025-04-26 09:02] LABS: Blood Urea Nitrogen 27 mg/dl (9-20); Calcium 8.7 mg/dl (8.4-10.2); Carbon Dioxide 18 mmol/L (22-30); Chloride 109 mmol/L (98-107); Estimated Creatinine Clearance 50 ml/min; Glucose 96 mg/dl (70-99); Potassium 5.3 mmol/L (3.5-5.1); Sodium 136 mmol/L (135-145); eGFR > 60.00
[2025-04-26] MEDS: PROZAC 20 MG PO (09:03)
[2025-04-26] MEDS: PROGRAF 2 MG PO (09:03)
--- NOTE | 2025-04-26 09:49 | W.PN.HOSP.TC ---
Addendum entered and electronically signed by Jason Fisher DO 04/26/25 11:22:
I spoke with Dr. Pinto and he recommends transfer to [facility] given patient's complicated diverticulitis with abscess and immunosuppression. History of renal transplant.
Patient and family agreeable to transfer.
I called [facility] transfer center and he has been accepted under the care of Dr. Peralta, general surgery.
Awaiting bed availability.
Original Note:
Today's Communication/Plan
-
Surgical consult
Antibiotics
IV fluids
Assessment / Plan
Assessment / Plan
Gen-AAOx3, NAD
HEENT-NC, AT, anicteric, clear oral mm
Neck-supple
CV-reg, no M, +S1/S2
Lungs-clear B/L
Abd-soft, nondistended, mild left lower quadrant tenderness without guarding
Ext-no edema
Musculoskeletal-no cyanosis, clubbing
Skin-warm and dry
Neuro-grossly non-focal
Psych-calm, cooperative
Acute sigmoid diverticulitis with abscess -first episode of diverticulitis.
CT scan shows diverticulitis along the proximal sigmoid colon with a 3 x 2 x 2 cm gas and fluid containing focus concerning for abscess.
Currently NPO. Continue antibiotics and IV fluids.
Colorectal surgery consulted.
Hyperkalemia -improving. Hold lisinopril. Received a dose of Lokelma last night.
History of renal transplant -2020, [facility]. Has been on mycophenolate and tacrolimus. Would resume mycophenolate if okay with surgical service.
Creatinine is at baseline.
Normal anion gap metabolic acidosis due to normal saline. Will change to half-normal saline IV fluids.
Paroxysmal atrial fibrillation -Eliquis on hold pending surgical decision.
Essential hypertension -stable.
Hyperlipidemia -on pravastatin.
DM2 without hyperglycemia -hemoglobin A1c pending. Glucose 96 this morning.
At home he is on dapagliflozin, repaglinide, monthly subcutaneous semaglutide.
In the hospital, use low resistance NovoLog scale.
Full code
Anticipated Discharge: > 48 hours
Subjective/Interval History
-
Date of Service: April 26, 2025
Patient seen and examined. Pain much improved, having minor left lower quadrant cramps. Asking for clears.
Objective Data
-
Labs:
Laboratory Results
04/26/25
07:01
WBC 10.5
Hgb 14.1
Hct 41.6
Plt Count 204
Sodium 136
Potassium 5.3 H
Chloride 109 H
Carbon Dioxide 18 L
BUN 27 H
Creatinine 1.2
Glucose 96
Calcium 8.7
Vital Signs:
Vital Signs
Temp Pulse Resp BP Pulse Ox
97.5 F 61 16 133/79 99
04/26/25 07:05 04/26/25 07:05 04/26/25 07:05 04/26/25 07:05 04/26/25 07:05
Review of Systems
-
History Source: Patient
All other systems: Reviewed and negative
[2025-04-26] MEDS: 0.45%NACL 1000 IV ×2 (09:53→22:12)
[2025-04-26 10:35] LABS: Glycohemoglobin (HgbA1c) 7.7 % (4.0-5.6)
--- NOTE | 2025-04-26 11:49 | CM ---
Patient seen at bedside with & daughter
IA completed
IMM explained. In chart
Lives with in 2 story home, 1st floor set up
PLOF: independent
Denies DME
Has had [facility] in past, denies rehab
PCP: Devin Disla
Pharmacy: [facility]
PLAN: Patient to be transferred to [place]
[2025-04-26 12:00] LABS: Glucose - Point of Care 95 mg/dl (70-99)
[2025-04-26 12:07] LABS: C-Reactive Protein 47.00 mg/L (0.0-10.00)
--- NOTE | 2025-04-26 12:27 | CON.GS ---
Addendum entered and electronically signed by Carlton Pinto MD 04/26/25 13:40:
I saw and examined the patient.
The GLOBE CHANGER's note was reviewed and I agree with the note.
Comment: Isadora 2 diverticulitis in setting of renal transplant. No pain, no tenderness, no leukocytosis, no fever. CT notable for contained sigmoid perforation, posterior and not amenable to IR drainage. I have concerns that we have a lack of
clinical and biochemical markers to follow due to immunosuppression, and this also makes his exam unreliable. As we cannot obtain source control with a drain, our options for non-op management are limited to IV abx and observation with subsequent
re-imaging. If he ultimately needs surgical intervention this should be performed at a transplant center. With all this in mind, I recommend transfer to [facility] where his transplant team is located.
Original Note:
Consultation
-
Date/Time Consultation Performed: 04/26/25 1015
Medical History
-
Chief Complaint: abdominal pain
History of Present Illness:
Mr Cox is a 74 yo male with a h/o left adrenalectomy (benign cyst), renal transplant 2020 at [facility], afib s/p ablation 02/11/25 on Eliquis (LD 04/25/25) and DM who presented through the ED overnight with abdominal pain which began 1 week ago and has
persisted accompanied by intermittent nausea and vomiting with anorexia. He reports that at onset of symptoms, his pain was initially quite severe and he was doubled over in pain for about a day. After this initial pain, he notes he had cramping to
the left lower quadrant which has been intermittent. He continues to pass flatus and denies diarrhea or constipation. He saw his PCP yesterday given ongoing symptoms and was advised to present to the ED for evaluation. Today, his exam is relatively
benign without focal tenderness.
Past Medical History
Past Medical History: Arrhythmias (afib s/p ablation 02/11/25), HTN, NIDDM and Renal Failure (now s/p transplant)
Past Surgical History: Other (Left adrenalectomy for benign cyst, renal transplant 2020 @[facility])
Social History
Tobacco: Non-Smoker
Alcohol: None
Living: With Family
Employment: Retired (from police department)
Family History
Family History: Other (renal dz in mother and maternal GF)
Allergies / Home Medications
Allergy/AdvReac Type Severity Reaction Status Date / Time
Iodinated Contrast Media Allergy Hives Verified 04/25/25 15:48
niacin Allergy Itching Verified 04/25/25 15:48
Sulfa (Sulfonamide Allergy Hives, Verified 04/25/25 15:48
Antibiotics) Itching
�Medication �Instructions �Recorded �Confirmed �Type
cyanocobalamin (vitamin B-12) 1,000 mcg PO DAILY Supplement 11/20/20 04/26/25 History
1,000 mcg tablet
loratadine 10 mg tablet 10 mg PO DAILY Allergies 11/20/20 04/26/25 History
fluoxetine 20 mg capsule 20 mg PO DAILY Depression 11/21/20 04/26/25 History
apixaban 5 mg tablet (Eliquis) 5 mg PO BID 11/23/24 04/26/25 History
dapagliflozin propanediol 10 mg 10 mg PO DAILY 11/23/24 04/26/25 History
tablet (Farxiga)
lisinopril 2.5 mg tablet 2.5 mg PO DAILY 11/23/24 04/26/25 History
magnesium oxide 800 mg PO BID 11/23/24 04/26/25 History
mycophenolate mofetil 250 mg 500 mg PO BID 11/23/24 04/26/25 History
capsule (CellCept)
pravastatin 20 mg tablet 20 mg PO HS 11/23/24 04/26/25 History
repaglinide 1 mg tablet 3 mg PO .DINNER 11/23/24 04/26/25 History
tacrolimus 1 mg capsule, 1.5 mg PO .EVENING 11/23/24 04/26/25 History
immediate-release (Prograf)
tacrolimus 1 mg capsule, 2 mg PO DAILY 11/23/24 04/26/25 History
immediate-release (Prograf)
repaglinide 1 mg tablet 1 mg PO BID@0700,1200 02/03/25 04/26/25 History
semaglutide 1 mg/dose (4 mg/3 mL) 1 mg SC MO 02/03/25 04/26/25 History
subcutaneous pen injector (Ozempic)
amlodipine 2.5 mg tablet 2.5 mg PO DAILY 04/26/25 04/26/25 History
Review of Systems
-
History Source: Patient and Family
All other systems: Negative unless noted
A 10 point review of systems was completed, and was negative except as per HPI.
Physical Exam
Vital Signs
Temp Pulse Resp BP Pulse Ox
97.5 F 61 16 133/79 99
04/26/25 07:05 04/26/25 07:05 04/26/25 07:05 04/26/25 07:05 04/26/25 07:05
04/25/25 04/26/25 04/27/25
06:59 06:59 06:59
Actual Weight 80.966 kg
Body Mass Index (BMI) 28.0
Lab Results
04/26/25 07:01
04/26/25 07:01
WBC 10.5 10^3/uL (4.8-10.8) 04/26/25 07:01
Hgb 14.1 g/dL (13.0-18.0) 04/26/25 07:01
Hct 41.6 % (39.0-52.0) 04/26/25 07:01
Plt Count 204 10^3/uL (130-400) 04/26/25 07:01
Abs Immat Gran (auto) 0.0 10^3/uL (0-0.05) 04/25/25 15:56
Neutrophils % 78.2 % (42.2-75.2) H 04/25/25 15:56
Physical Exam
General: Well Developed and Well Nourished
HEENT: Normocephalic and Moist Mucous Membranes
Respiratory: Non Labored Respirations
GI: Soft, Non Tender and Non Distended
Skin: Warm and Dry
Neuro: Awake, Alert and AO x 3
Psych: Calm
Data Reviewed
-
CT Scan: Image Personally Visualized and interpreted, Report Reviewed by me, Discussed with Physician, Discussed with Patient and Discussed with Family
Labs: Labs Reviewed by me, Discussed with Physician, Discussed with Patient and Discussed with Family
Old Records: Reviewed
Assessment / Plan
-
Mr Cox is a 74 yo male with a h/o left adrenalectomy (benign cyst), renal transplant 2020 at [facility], afib s/p ablation 02/11/25 on Eliquis (LD 04/25/25) and HTN, DM who presented through the ED overnight with intermittent cramping left sided
abdominal pain which began 1 week ago accompanied by intermittent nausea and vomiting with anorexia. Afebrile. No leukocytosis. CRP elevated to 47.0. Cr and K elevated.
CT imaging reviewed with findings of sigmoid diverticulitis with localized perforation with developing abscess measuring 3.5x2.1x2.8. There does not appear to be a window for IR drainage. Exam is relatively benign although this is not unexpected in
an immunocompromised patient.
Plan:
Continue nonoperative management at this point with bowel rest and antibiotics. If his condition deteriorates he may require surgery which would need to be done at a tertiary care center where his renal transplant can be followed by the transplant
team intraop as well as perioperatively.
Continue IV Zosyn
Keep NPO with sips of clears for comfort
Hold PO AC in case surgery is warranted, ok for IV heparin if warranted
Consult placed to nephrology given transplant history as well as hyperkalemia, elevated cr on presentation
Trend labs/exams
Would recommend transfer to tertiary care center/[facility] where his transplant team is located. Discussed with primary team and family who are agreeable for transfer.
--- NOTE | 2025-04-26 12:54 | W.CON.NEPH ---
Consultation
-
Date/Time Consultation Requested: April [id number] AM
Date/Time Consultation Performed: April 26, 2025 at 12 PM
Requesting Provider: Jason Fisher
Performing Provider: Dr. Torres
Reason for Consultation: Kidney transplant management
Medical History
-
Chief Complaint: Kidney transplant management and CKD
History of Present Illness:
74y M with PMH significant for hypertension, DM-II and renal transplant status who presents to ED complaining of abdominal pain / bloating. Is found to have a diverticular abscess. He is status post renal transplant [facility]
2020
Previously seen by a local driver license agent in [place].
He is a living donor renal transplant from his .
Renal consult for CKD management and renal transplant management in the setting of sepsis
Past Medical History
cKD / Renal Transplant 2020 living related donor
Hypertension
DM-II
Paroxysmal Atrial Fibrillation
Social History
Tobacco: Non-Smoker
Alcohol: None
Family History
Family History: Not Pertinent
Allergies / Home Medications
Allergy/AdvReac Type Severity Reaction Status Date / Time
Iodinated Contrast Media Allergy Hives Verified 04/25/25 15:48
niacin Allergy Itching Verified 04/25/25 15:48
Sulfa (Sulfonamide Allergy Hives, Verified 04/25/25 15:48
Antibiotics) Itching
�Medication �Instructions �Recorded �Confirmed �Type
cyanocobalamin (vitamin B-12) 1,000 mcg PO DAILY Supplement 11/20/20 04/26/25 History
1,000 mcg tablet
loratadine 10 mg tablet 10 mg PO DAILY Allergies 11/20/20 04/26/25 History
fluoxetine 20 mg capsule 20 mg PO DAILY Depression 11/21/20 04/26/25 History
apixaban 5 mg tablet (Eliquis) 5 mg PO BID 11/23/24 04/26/25 History
dapagliflozin propanediol 10 mg 10 mg PO DAILY 11/23/24 04/26/25 History
tablet (Farxiga)
lisinopril 2.5 mg tablet 2.5 mg PO DAILY 11/23/24 04/26/25 History
magnesium oxide 800 mg PO BID 11/23/24 04/26/25 History
mycophenolate mofetil 250 mg 500 mg PO BID 11/23/24 04/26/25 History
capsule (CellCept)
pravastatin 20 mg tablet 20 mg PO HS 11/23/24 04/26/25 History
repaglinide 1 mg tablet 3 mg PO .DINNER 11/23/24 04/26/25 History
tacrolimus 1 mg capsule, 1.5 mg PO .EVENING 11/23/24 04/26/25 History
immediate-release (Prograf)
tacrolimus 1 mg capsule, 2 mg PO DAILY 11/23/24 04/26/25 History
immediate-release (Prograf)
repaglinide 1 mg tablet 1 mg PO BID@0700,1200 02/03/25 04/26/25 History
semaglutide 1 mg/dose (4 mg/3 mL) 1 mg SC MO 02/03/25 04/26/25 History
subcutaneous pen injector (Ozempic)
amlodipine 2.5 mg tablet 2.5 mg PO DAILY 04/26/25 04/26/25 History
Review of Systems
-
Mild abdominal pain no decreased urination no nausea or vomiting
All other systems: Negative unless noted
Physical Exam
Vital Signs
Vital Signs
Temp Pulse Resp BP Pulse Ox
97.5 F 61 16 133/79 99
04/26/25 07:05 04/26/25 07:05 04/26/25 07:05 04/26/25 07:05 04/26/25 07:05
Lab Results
WBC 10.5 10^3/uL (4.8-10.8) 04/26/25 07:01
RBC 4.55 10^6/uL (4.70-6.10) L 04/26/25 07:01
Hgb 14.1 g/dL (13.0-18.0) 04/26/25 07:01
Hct 41.6 % (39.0-52.0) 04/26/25 07:01
Plt Count 204 10^3/uL (130-400) 04/26/25 07:01
Sodium 136 mmol/L (135-145) 04/26/25 07:01
Potassium 5.3 mmol/L (3.5-5.1) H 04/26/25 07:01
Chloride 109 mmol/L (98-107) H 04/26/25 07:01
Carbon Dioxide 18 mmol/L (22-30) L 04/26/25 07:01
BUN 27 mg/dl (9-20) H 04/26/25 07:01
Creatinine 1.2 mg/dL (0.7-1.3) 04/26/25 07:01
eGFR > 60.00 04/26/25 07:01
Glucose 96 mg/dl (70-99) 04/26/25 07:01
Calcium 8.7 mg/dl (8.4-10.2) 04/26/25 07:01
Albumin 4.0 g/dl (3.5-5.0) 04/25/25 15:56
Physical Exam
General no acute distress
HEENT no cephalic atraumatic extraocular muscle intact no scleral icterus no JVD neck supple
lungs clear to auscultation bilateral
heart regular S1-S2 positive
abdomen soft nontender positive bowel sounds
extremities no edema pulses present bilateral
Neurologically nonfocal alert and oriented x 3
Skin no lesions no abrasions no petechiae
Psych normal affect no bizarre behavior
Data Reviewed
-
CT Scan: Image Personally Visualized and interpreted
Labs: Labs Reviewed by me, Discussed with Physician, Discussed with Patient and Discussed with Family
Assessment/Plan
-
74y M with PMH significant for hypertension, DM-II and renal transplant status who presents to ED complaining of abdominal pain / bloating. Is found to have a diverticular abscess. He is status post renal transplant [facility]
2020
Previously seen by a local driver license agent in [place].
He is a living donor renal transplant from his .
Renal consult for CKD management and renal transplant management in the setting of sepsis
Impression.
LETICIA
Diverticular abscess focal perforation
[facility]KD / Renal Transplant 2020 living related donor
Hypertension
DM-II
Paroxysmal Atrial Fibrillation
Plan.
Creatinine has improved with IV fluids prerenal
Antibiotics renally dosed
Patient is been accepted [facility] for transfer
Mycophenolate has been held continue tacrolimus
[2025-04-26 15:05] VITALS: BP 135/77
[2025-04-26 16:24] LABS: Glucose - Point of Care 108 mg/dl (70-99)
[2025-04-26] MEDS: TYLENOL 650 MG PO (16:59)
[2025-04-26] MEDS: DILAUDID 0.5 MG IV (22:15)
[2025-04-26 23:07] LABS: Glucose - Point of Care 84 mg/dl (70-99)
[2025-04-26 23:31] VITALS: BP 112/75
[2025-04-27] MEDS: ZOSYN IV
--- NOTE | 2025-04-27 02:28 | PTCARENOTE ---
Pt AAOX3 able to make his needs known.Pt provided with PRN pain meds as needed.Pt was transfered to [place] by ambulance. Report was provided to SANA Griffiths.Pt denies of any other problems.All belongings send with pt.No other complaints noted at this
time.
--- NOTE | 2025-04-27 13:14 | W.DS.TRANS ---
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
-
Discharge Instructions:
Discharge Diagnosis/Procedures Acute diverticulitis with abscess
Diet Other diet
Additional Diets N.p.o.
Activity As tolerated
Driving Restrictions As prior to admission
Bathing Restrictions None
Instructions:
Stand-Alone Forms:
Changes to Home Medications: No
Discharge Medications:
DC Medications w/original date entered in [employer]
cyanocobalamin (vitamin B-12) 1,000 mcg tablet 1,000 mcg PO DAILY Supplement 11/20/20
loratadine 10 mg tablet 10 mg PO DAILY Allergies 11/20/20
fluoxetine 20 mg capsule 20 mg PO DAILY Depression 11/21/20
apixaban 5 mg tablet (Eliquis) 5 mg PO BID 11/23/24
dapagliflozin propanediol 10 mg tablet (Farxiga) 10 mg PO DAILY 11/23/24
lisinopril 2.5 mg tablet 2.5 mg PO DAILY 11/23/24
magnesium oxide 800 mg PO BID 11/23/24
mycophenolate mofetil 250 mg capsule (CellCept) 500 mg PO BID 11/23/24
pravastatin 20 mg tablet 20 mg PO HS 11/23/24
repaglinide 1 mg tablet 3 mg PO .DINNER 11/23/24
tacrolimus 1 mg capsule, immediate-release (Prograf) 1.5 mg PO .EVENING 11/23/24
tacrolimus 1 mg capsule, immediate-release (Prograf) 2 mg PO DAILY 11/23/24
repaglinide 1 mg tablet 1 mg PO BID@0700,1200 02/03/25
semaglutide 1 mg/dose (4 mg/3 mL) subcutaneous pen injector (Ozempic) 1 mg SC MO 02/03/25
amlodipine 2.5 mg tablet 2.5 mg PO DAILY 04/26/25
Home Medication Changes
Pending Results: No
== END 2025-04-27 02:53 | disposition short-term general hospital (02) | DRG 392 ==
LOC: 4 EAST ACU 01:25
PROVIDERS: Emergency Medicine; Nurse Practitioner; ADMITTING PHYSICIAN Hospitalist; ATTENDING PHYSICIAN Hospitalist; CONSULT PHYSICIAN Internal Medicine Nephrology; CONSULT PHYSICIAN Surgery; EMERGENCY PHYSICIAN Emergency Medicine; FAMILY PHYSICIAN Family Medicine
DX: K57.20 Diverticulitis of large intestine with perforation and abscess without bleeding (principal); D84.9 Immunodeficiency, unspecified; Z94.0 Kidney transplant status; E87.20 Acidosis, unspecified; I48.0 Paroxysmal atrial fibrillation; I12.9 Hypertensive chronic kidney disease with stage 1 through stage 4 chronic kidney disease, or unspecified chronic kidney disease; N18.30 Chronic kidney disease, stage 3 unspecified; E87.5 Hyperkalemia; E11.22 Type 2 diabetes mellitus with diabetic chronic kidney disease; E78.5 Hyperlipidemia, unspecified; K59.00 Constipation, unspecified; Z79.01 Long term (current) use of anticoagulants; Z79.899 Other long term (current) drug therapy; Z79.621 Long term (current) use of calcineurin inhibitor; Z79.624 Long term (current) use of inhibitors of nucleotide synthesis; Z79.85 Long-term (current) use of injectable non-insulin antidiabetic drugs
CPT/HCPCS: 74176; 80048; 80053; 81003; 81015; 82962; 83036; 83690; 85025; 85027; 86140; 93005; 96360; 99285